=== PATIENT | female | born 1990 | race Caucasian/White ===

== ENCOUNTER 2020-12-17 19:50 | Inpatient (IN) | payer BC ==
[~2020-12-17] VITALS: Ht 157.5 cm; Wt 83.2 kg
[~2020-12-17 19:50] MED LIST: BCP TD; NO HOME MEDICATIONS
[2020-12-17 20:58] LABS: BASO % 0.2 % (0.0-2.0); EOS # 0.1 (0.0-0.7); EOS % 0.6 % (0-4.0); GRAN # 6.8 (1.4-6.5); GRAN % 70.7 % (42.2-75.2); HEMOGLOBIN 11.2 g/dl (12.5-16.0); LYMPH # 1.9 (1.2-3.4); LYMPH % 19.4 % (20.0-51.0); MEAN CELL VOLUME 99 fl (80.0-100.0); MEAN CORPUSCULAR HEMOGLOBIN 33 pg (27.0-31.0); MEAN CORPUSCULAR HGB CONC 34 g/dl (33.0-37.0); MEAN PLATELET VOLUME 9.8 fl (7.4-10.4); MONO # 0.8 (0.1-0.6); MONO % 8.7 % (1.7-9.3); PLATELET COUNT 242 K/mm3 (130-400); RED BLOOD COUNT 3.35 M/mm3 (4.10-5.30); REDCELL DISTRIBUTION WIDTH-CV 13.2 % (11.5-14.5)
[2020-12-17] MEDS ORDERED: PRENATAL 191 CTB PO (21:31)
[2020-12-18 20:15] VITALS: BP 106/63; PULSE 81; TEMP 97.4
[2020-12-19 07:30] VITALS: BP 107/64; PULSE 70; TEMP 97.5
[2020-12-19] MEDS ORDERED: IBU600 MG PO (08:52)
--- NOTE | 2020-12-19 09:48 | NUR ---
Initial visit; Parents thanked Client Manager Large Law for looking in on them and offering congratulations and God's blessings for the of their daugher. Client Manager Large Law thanked family for choosing [facility].
--- NOTE | 2020-12-19 10:30 | NUR ---
1030-Reviewed discharge instructions with patient. Instructed on need to follow up at 6week apt. Patient denies questions. Reviewed newly prescribed motrin prescription. 1055-Ambulatory off unit with spouse.
--- NOTE | 2020-12-19 10:34 | NUR ---
(Late Entry 12/18/20) [facility] responded to consult in the OB as patient received late care. SHA met with patient and patient's , Neftaly (ph#[phone]). Patient and Neftaly live in [place] and patient states she has another child who is 11 years old that is currently at home with his grandmother, patient's mother. Patient states her family and Neftaly's family both live locally and are supportive. Patient reports she received late care as she did not know she was for quite some time. 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 Patient states she is still trying to establish childcare, but have not found a good fit yet. SHA provided [facility] Resource Guide to patient who advised she does not qualify for WIC. Patient reports she has all needed supplies for baby and plans to formula feel. Patient has no concerns about returning home at this time. SHA collaborated with above information to [facility]Jing.
--- NOTE | 2020-12-23 10:29 | NUR ---
Patient's infant's cord blood was negative for illegal drugs in system.
== END 2020-12-19 10:55 | disposition home or self-care (01) | DRG 807 ==
LOC: LDRO 19:50 → OB 20:20 → LDR 20:20 → OB 20:33
PROVIDERS: Student in an Organized Health Care Education/Training Program; ADMIT Obstetrics & Gynecology
PROC: 10E0XZZ Delivery of Products of Conception, External Approach (ICD-10-PCS; principal; 2020-12-17)
PROC: 0KQM0ZZ Repair Perineum Muscle, Open Approach (ICD-10-PCS; 2020-12-17)
DX: O99.02 Anemia complicating childbirth (principal); Z37.0 Single live birth; D64.9 Anemia, unspecified; O70.1 Second degree perineal laceration during delivery; Z3A.39 39 weeks gestation of pregnancy
CPT/HCPCS: J2210; J2590; J7120